=== PATIENT | male | born 1965 | race Caucasian/White ===

== ENCOUNTER 2020-11-29 08:17 | Emergency (ER) | payer OTHER, SELFPAY ==
[2020-11-29 08:21] VITALS: BP 125/86; PULSE 90; RESP 14; TEMP 36.3; O2SAT 94; BMI 25.7
--- NOTE | 2020-11-29 08:37 | XRR_ITS ---
PROCEDURE INFORMATION: Exam: XR Chest Exam date and time: 11/29/2020 8:50 AM Age: 55 years old Clinical indication: Chest pain TECHNIQUE: Imaging protocol: XR of the chest. Views: Frontal portable upright view of the chest. COMPARISON: CR Chest 1 [place] [id number] 09/02/2017 11:02 AM FINDINGS: Tubes, catheters and devices: EKG leads are present overlying the chest. Lungs: The lungs are clear bilaterally. The pulmonary vasculature is normal. Pleural spaces: No pleural effusion. No pneumothorax. Heart/Mediastinum: The heart is normal in size and contour. Mediastinum: Stable. Bones/joints: Mild leftward lower thoracic spinal curvature. XR/XR chest 1V portable [id number] IMPRESSION: No acute cardiopulmonary abnormality identified.
--- NOTE | 2020-11-29 08:37 | ECG_ITS ---
[facility] Test Date: 2020-11-29 Pat Name: Des Kramer Department: Room: Gender: Male Intelligence Consultant: : 1965 Requested By: Kin Barraza Order Number: [id number] Francine MD: Janiya Yi M.D. Measurements Intervals [place] Rate: 84 P: 64 PA: 146 QRS: -67 QRSD: 116 T: 77 QT: 399 QTc: 474 Interpretive Statements SINUS RHYTHM MARKED LEFT AXIS DEVIATION [QRS AXIS < -30] POSSIBLE RIGHT VENTRICULAR CONDUCTION DELAY [RSR (QR) IN V1/V2] POSSIBLE ANTERIOR MYOCARDIAL INFARCTION [30 ms Q WAVE IN V3/V4, OR R < 0.2 mV IN V4], OF INDETERMINATE AGE Compared to ECG 09/02/2017 12:31:10 Left-axis deviation now present Left anterior fascicular block no longer present Myocardial infarct finding still present Electronically Signed On 11-29-2020 10:25:22 CDT by Janiya Yi M.D. [id number]
[2020-11-29 08:38] VITALS: BP 133/77; PULSE 87; RESP 21; O2SAT 96
[2020-11-29] MEDS: aspirin 81 mg Chew Tablet 324 MG PO (08:44)
[2020-11-29 08:59] LABS: Basophils % 0.3 %; Eosinophils % 0.2 %; Hematocrit 42.4 % (42.0-52.0); Hemoglobin 13.9 g/dL (11.7-16.6); Lymphocytes # 1.2 10^3/uL (0.8-4.8); Lymphocytes % 12.2 %; Mean Corpuscular HGB Conc 32.8 g/dL (30.0-36.0); Mean Corpuscular Hemoglobin 28.8 pg (28.0-34.0); Mean Platelet Volume 10.6 fL (7.4-10.4); Monocytes # 0.8 10^3/uL (0.2-0.9); Monocytes % 8.7 %; Neutrophils # 7.46 10^3/uL (1.8-7.7); Neutrophils % 78.3 %; Nucleated Red Blood Cells % 0 %; Platelet Count 188 10^3/cmm (130-400); Red Blood Count 4.82 10^6/uL (4.1-5.3); Red Cell Distribution Width 12.5 % (12.1-15.1); White Blood Count 9.5 10^3/uL (4.0-10.0)
[2020-11-29 09:17] LABS: Troponin(5th) Baseline 13 ng/L (0-15)
[2020-11-29 09:25] LABS: INR 1.09 (0.8-1.2); Partial Thromboplastin Time 31.3 SECONDS (23.9-36.7)
[2020-11-29] MEDS: ondansetron 2 mg/ML SDV 2 mL 4 MG IVP (09:36)
[2020-11-29 09:44] VITALS: BP 113/76; PULSE 71; RESP 19; O2SAT 95
[2020-11-29 10:10] LABS: Alanine Aminotransferase 19 U/L (0-41); Albumin Level 4.4 g/dL (3.5-5.2); Alkaline Phosphatase 132 IU/L (40-130); Aspartate Amino Transferase 19 U/L (0-40); Blood Urea Nitrogen 14 mg/dL (6-20); Calcium 9.1 mg/dL (8.5-10.5); Carbon Dioxide 25 mmol/L (22-29); Chloride 104 mmol/L (98-107); Creatinine Clr Calc Pharmacy 100.8629; Globulin 2.1 g/dL (1.3-4.6); Glucose 108 mg/dL (65-115); NT Pro B Type Natriuretic Pept 155 pg/mL (0-125); Osmolality Calculated 289 mOsm/kg (285-295); Sodium 139 mmol/L (136-145); Total Bilirubin 0.7 mg/dL (0.15-1.2); Total Protein 6.5 g/dL (6.6-8.7)
[2020-11-29 11:00] VITALS: BP 112/70; PULSE 70; RESP 21; O2SAT 97
[2020-11-29 11:02] VITALS: PULSE 68
[2020-11-29 11:13] LABS: Troponin 5 2HR 12.71 ng/L (0-15)
[2020-11-29 11:21] LABS: Troponin 5 2HR Delta -0.29 ABS# (0-10)
[2020-11-29 11:58] VITALS: BP 105/70; PULSE 73; RESP 22; O2SAT 95
--- NOTE | 2020-11-29 19:21 | ED_ITS ---
HPI - Chest Pain General: Chief Complaint: Chest Pain Stated Complaint: CP SINCE MON WITH TEMP Time Seen by Provider: 11/29/20 08:27 History of Present Illness: HPI narrative: 55-year-old male comes in with chest pain. He also has pain in his left arm and hand. This started Monday at about 3:30 PM. He states he just feels lousy. He states that he had similar pain a few years ago when he had his TN. He describes the pain as a tightness in his chest. He has been having dry heaves. He does get heartburn. He states he feels tired. He did not take his temperature but he feels hot. He denies any pain or burning with urination. He has had some upper abdominal pain. He had 4 loose stools since 3 AM today. He denies any flank pain. MD complaint: chest pain (Tightness) Pertinent past history: coronary artery disease and prior TN Onset (ago): day(s) (This started about 3:30 PM and Monday.) Timing of current episode: episodic Prior episodes: Yes Onset: during rest Pain location: left chest Pain radiation: left arm (And left hand) Severity: moderate Quality: tightness and similar to prior TN Relieving factors: nothing Exacerbating factors: nothing Associated symptoms: Reports fever(s) (He states he felt hot), nausea and vomiting; Deny abdominal pain, diaphoresis, dyspnea, palpitations, sense of impending doom or syncope Treatment prior to arrival: none Review of Systems Const: Reports: fever(s) (He states he felt hot); Denies: chills, body aches, change in appetite, change in weight, fatigue, malaise, night sweats, diaphoresis, change in sleep pattern or daytime sleepiness ENMT: Denies: throat pain, ear or mastoid pain, nasal discharge or nasal congestion Card: Reports: chest pain; Denies: palpitations, irregular heart rhythm, edema, swelling of feet/ankles, lightheadedness, syncope, dyspnea on exertion or orthopnea Resp: Denies: dyspnea, productive cough, non-productive cough, wheezing, stridor, pain on inspiration or chest congestion GI: Reports: nausea, vomiting, heartburn and diarrhea; Denies: abdominal pain, hematemesis, coffee ground emesis, dysphagia, constipation, bloating or pain on defecation : Denies: flank pain, difficulty urinating, dysuria or urinary frequency Musc: Denies: neck pain, back pain, extremity pain, extremity swelling, joint pain, joint swelling or muscle weakness Neuro: Denies: headache(s), numbness in extremities, weakness in extremities, difficulty walking, frequent falls, dizziness, vertigo, confusion or Slurred speech present PFSH ED PFSH: Medical History ASHD (arteriosclerotic heart disease) Dyslipidemia Ischemic cardiomyopathy Myocardial infarction Surgical History S/P angioplasty with stent Social History Smoking and tobacco status: former smoker Marital status: Single service: No Current occupational status: employed 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 Physical Exam Const: COMMON NORMALS: no acute distress, average body habitus, patient oriented x3, no limitations, healthy appearing, alert and well nourished EXAM LIMITATIONS: no altered mental status and no behavioral limitations GENERAL APPEARANCE: cooperative, comfortable, well kempt and well developed; not in distress, not lethargic, not ill appearing and not frail appearing O RIENTATION/CONSCIOUSNESS: Yes oriented to person, Yes oriented to place and Yes oriented to time; not lethargic HENMT: COMMON NORMALS: normocephalic, atraumatic, hearing grossly normal bilaterally and moist oral mucous membranes HEAD & SCALP: normocephalic and atraumatic Eye: COMMON NORMALS: Equal, round and reactive pupils present, EOMs intact bilaterally, conjunctivae normal and no scleral icterus GENERAL EYE: appearance normal, both eyes and all related structures and normal light reflex CONJUNCTIVA: Yes conjunctivae normal PUPIL: Yes Equal, round and reactive pupils present DIRECT OPHTHALMOSCOPY: Yes normal light reflex Neck/C-Spine: COMMON NORMALS: full ROM, no lymphadenopathy, supple, no meningeal signs and no JVD GENERAL: Yes trachea midline Resp: COMMON NORMALS: normal respiratory effort, No retractions, No use of accessory muscles and clear to auscultation bilaterally EFFORT & INSPECTION: Yes able to speak in complete sentences, Yes symmetric chest movement, No respiratory distress, No grunting, No stridor, No Actively coughing and No retractions AUSCULTATION: clear to auscultation bilaterally, no crackles, no rales, no rhonchi and no wheezes Cardio: COMMON NORMALS: no JVD, regular rate and regular rhythm RATE: regular rate RHYTHM: regular rhythm GI: COMMON NORMALS: Normal to inspection, nondistended, normoactive bowel sounds present, Soft to palpation, non-tender, No hepatosplenomegaly present and no masses PALPATION: Yes Soft to palpation, No Tenderness to palpation present (GI), No Guarding due to palpation present (GI) and Yes No hepatosplenomegaly present : COMMON NORMALS: Yes no CVA tenderness BLADDER/KIDNEY EXAM: Yes no CVA tenderness Back/Pelvis: COMMON NORMALS: no CVA tenderness Extremity: COMMON NORMALS: normal to inspection, full ROM, capillary refill normal, no joint enlargement, no clubbing, cyanosis or edema, no calf tenderness and no pedal edema Neuro: COMMON NORMALS: patient oriented x3, moves all extremities, no focal motor deficits and gait normal SENSORIUM/ORIENTATION: Yes alert, Yes oriented to person, Yes oriented to place, Yes oriented to time, No Orientation impaired, No lethargic, No somnolent, No obtunded, No stuporous and No fluctuating sensorium MENINGEAL SIGNS: Yes no meningeal signs Psych: COMMON NORMALS: mental status grossly normal, Normal thought process present, cooperative, normal affect, speech normal and activity/motor behavior normal APPEARANCE: Yes grossly normal and Yes well kempt ATTITUDE: Yes calm and Yes engaged ACTIVITY/MOTOR BEHAVIOR: Yes appropriate eye contact SPEECH: Yes normal speech THOUGHT PROCESS: Normal thought process present Course Vital Signs: Vital signs: Vital Signs Temperature 97.3 F L 11/29/20 08:21 Pulse Rate 73 11/29/20 11:58 Respiratory Rate 22 H 11/29/20 11:58 Blood Pressure 105/70 11/29/20 11:58 Pulse Oximetry 95 11/29/20 11:58 MDM - Chest Pain Lab Data: Labs: Lab Results 11/29/20 11/29/20 11/29/20 Range/Units 08:28 08:28 08:28 WBC 9.5 (4.0-10.0) 10^3/ uL RBC 4.82 (4.1-5.3) 10^6/u L Hgb 13.9 (11.7-16.6) g/dL Hct 42.4 (42.0-52.0) % MCV 88.0 (80-94) fL MCH 28.8 (28.0-34.0) pg MCHC 32.8 (30.0-36.0) g/dL RDW 12.5 (12.1-15.1) % Plt Count 188 (130-400) 10^3/c mm MPV 10.6 H (7.4-10.4) fL Neut % (Auto) 78.3 % Lymph % (Auto) 12.2 % [place] % (Auto) 8.7 % Eos % (Auto) 0.2 % Baso % (Auto) 0.3 % Neut # (Auto) 7.46 (1.8-7.7) 10^3/u L Lymph # (Auto) 1.2 (0.8-4.8) 10^3/u L [place] # (Auto) 0.8 (0.2-0.9) 10^3/u L Eos # (Auto) 0.0 (0.0-0.8) 10^3/u L Baso # (Auto) 0.0 (0.0-0.1) 10^3/u L Nucleated RBC % (a uto) 0 % Nucleated RBCs # 0.0 /100WBC PT 14.40 (12.1-14.9) SECO NDS INR 1.09 (0.8-1.2) APTT 31.3 (23.9-36.7) SECO NDS Sodium 139 (136-145) mmol/L Potassium 4.0 (3.5-5.1) mmol/L Chloride 104 (98-107) mmol/L Carbon Dioxide 25 (22-29) mmol/L Anion Gap 14.0 (5-19) BUN 14 (6-20) mg/dL Creatinine 0.9 (0.7-1.2) mg/dL GFR Calculation 87.0 L (90-130) mL/min Glucose 108 (65-115) mg/dL Calculated Osmolal ity 289 (285-295) mOsm/k g Calcium 9.1 (8.5-10.5) mg/dL Total Bilirubin 0.7 (0.15-1.2) mg/dL AST 19 (0-40) U/L ALT 19 (0-41) U/L Alkaline Phosphata se 132 H (40-130) IU/L Troponin T Baselin e (0-15) ng/L Troponin T 120 Min andreafski (0-15) ng/L Delta Troponin T (0-10) ABS# NT-Pro-B Natriuret Pep 155 H (0-125) pg/mL Total Protein 6.5 L (6.6-8.7) g/dL Albumin 4.4 (3.5-5.2) g/dL Globulin 2.1 (1.3-4.6) g/dL 11/29/20 11/29/20 Range/Units 08:28 10:30 WBC (4.0-10.0) 10^3/ uL RBC (4.1-5.3) 10^6/u L Hgb (11.7-16.6) g/dL Hct (42.0-52.0) % MCV (80-94) fL MCH (28.0-34.0) pg MCHC (30.0-36.0) g/dL RDW (12.1-15.1) % Plt Count (130-400) 10^3/c mm MPV (7.4-10.4) fL Neut % (Auto) % Lymph % (Auto) % [place] % (Auto) % Eos % (Auto) % Baso % (Auto) % Neut # (Auto) (1.8-7.7) 10^3/u L Lymph # (Auto) (0.8-4.8) 10^3/u L [place] # (Auto) (0.2-0.9) 10^3/u L Eos # (Auto) (0.0-0.8) 10^3/u L Baso # (Auto) (0.0-0.1) 10^3/u L Nucleated RBC % (a uto) % Nucleated RBCs # /100WBC PT (12.1-14.9) SECO NDS INR (0.8-1.2) APTT (23.9-36.7) SECO NDS Sodium (136-145) mmol/L Potassium (3.5-5.1) mmol/L Chloride (98-107) mmol/L Carbon Dioxide (22-29) mmol/L Anion Gap (5-19) BUN (6-20) mg/dL Creatinine (0.7-1.2) mg/dL GFR Calculation (90-130) mL/min Glucose (65-115) mg/dL Calculated Osmolal ity (285-295) mOsm/k g Calcium (8.5-10.5) mg/dL Total Bilirubin (0.15-1.2) mg/dL AST (0-40) U/L ALT (0-41) U/L Alkaline Phosphata se (40-130) IU/L Troponin T Baselin e 13 (0-15) ng/L Troponin T 120 Min andreafski 12.71 (0-15) ng/L Delta Troponin T -0.29 L (0-10) ABS# NT-Pro-B Natriuret Pep (0-125) pg/mL Total Protein (6.6-8.7) g/dL Albumin (3.5-5.2) g/dL Globulin (1.3-4.6) g/dL Discharge Plan Discharge Patient Disposition: Home Clinical Impression: Blood pressure, low, incidental finding Chest pain Qualifiers: Chest pain type: unspecified Qualified Code(s): R07.9 - Chest pain, unspecified Nausea & vomiting Qualifiers: Vomiting type: unspecified Vomiting Intractability: non-intractable Qualified Code(s): R11.2 - Nausea with vomiting, unspecified Condition: Stable Prescriptions: No Action simvastatin 40 mg tablet 40 mg PO DAILY RF: 0 clopidogrel 75 mg tablet See Rx Instructions .ROUTE .COMPLEX Qty: 90 RF: 3 metoprolol tartrate 25 mg tablet See Rx Instructions .ROUTE .COMPLEX Qty: 90 RF: 3 lisinopril 2.5 mg tablet See Rx Instructions .ROUTE .COMPLEX Qty: 90 RF: 3 aspirin 81 mg tablet,delayed release (DR/EC) See Rx Instructions .ROUTE .COMPLEX Qty: 90 RF: 2 atorvastatin 40 mg tablet 40 mg PO DAILY Qty: 90 RF: 2 Discharge Orders: Discharge ED (Routine); Ordered 11/29/20 Ordered By: Kin Barraza Referrals: Lazaro Schrader, [Primary Care Provider] - Discharge Diet: As Directed Discharge Activity: Resume usual activity Patient Instructions: Opioid Safety Activity Restrictions/Additional Instructions: Take your lisinopril in the morning with the rest of your medications at night. Coding Level of Care Code ED Dinkey Engine Mechanic for Azam Fwd Exam Comprehensive
== END 2020-11-29 11:59 | disposition home or self-care (01) ==
PROVIDERS: Emergency Provider Emergency Medicine; PCP Electrodiagnostic Medicine
DX: R07.9 Chest pain, unspecified (principal); R11.2 Nausea with vomiting, unspecified; R03.1 Nonspecific low blood-pressure reading; Z79.82 Long term (current) use of aspirin; E78.5 Hyperlipidemia, unspecified; I25.2 Old myocardial infarction; Z87.891 Personal history of nicotine dependence
CPT/HCPCS: 36415; 71045; 80053; 83880; 84484; 85025; 85610; 85730; 93005; 96374; 99284; J2405

== ENCOUNTER 2021-05-14 07:49 | Outpatient (CLI) | payer OTHER, SELFPAY ==
[2021-05-14 07:53] VITALS: BP 141/72; PULSE 74; RESP 18; TEMP 37; O2SAT 98; BMI 25.7
[2021-05-14 08:27] VITALS: BP 130/79; PULSE 66; RESP 16; O2SAT 98
[2021-05-14 09:25] VITALS: BP 129/79; PULSE 65; RESP 17; TEMP 36.8; O2SAT 98
--- NOTE | 2021-05-19 14:44 | PC.SOCIAL ---
antibody infusion follow up call patient reports symptoms are better, he had a bad sore throat which is now better with a slight cough. continues to have fatigue but is improving.
== END 2021-05-14 07:50 | disposition home or self-care (01) ==
LOC: OPS 07:51
PROVIDERS: PCP Electrodiagnostic Medicine; Visit Provider Nurse Practitioner
DX: U07.1 COVID-19 (principal)
CPT/HCPCS: 96365

== ENCOUNTER 2021-12-31 07:03 | Outpatient (CLI) | payer OTHER, SELFPAY ==
--- NOTE | 2021-12-31 07:17 | ECG_ITS ---
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 Interpretive Statements NAME OF STUDY: EXERCISE SESTAMIBI STRESS TEST INDICATION: Chest Pain Baseline blood pressure of 135/86 mm Hg, heart rate 59 beats per minute and oxygen saturation of 98%. EKG showed normal sinus rhythm, normal axis. Possible old anterior infarct. The patient exercised for 10 minutes 31 seconds on a standard Rad protocol. Patient attained a maximum heart rate of 154 beats per minute(95% of the maximum predicted heart rate) with a blood pressure at the peak exercise of 141/65 mm Hg and oxygen saturation of 96%. The EKG at the peak exercise revealed sinus tachycardia with no significant ST-T wave changes. Patient did not have any chest pain or any significant arrhythmis with the exercise. The study was terminated due to maximal effort. During the recovery phase, there were no new changes. Blood pressure at the end of the recovery phase was 168/72 mm Hg with a heart rate of 96 beats per minute and oxygen saturation 99%. CONCLUSION: 1. Normal EKG response to treadmill exercise. 2. No exercise-induced chest pain or cardiac arrhythmia. 3. Excellent exercise tolerance, attained a maximum of 10.3 METs. Maximum VO2 47.3 mL/kg/min. 4. Baseline hypertension with normal response to exercise. 5. Perfusion scan will be documented separately. Electronically Signed On 01-04-2022 15:26:02 CDT by Janiya Yi M.D. [id number]
--- NOTE | 2021-12-31 07:18 | NMCV_ITS ---
NM virgilio perf SPECT r/s* [id number] Des Kramer Age: 56 Gender: M : 1965 Exam Date: 12/31/2021 07:18 Ordering Phys: Kenneth Valle MD ([email or web address]) Technologist: JASIEL Braun Exam Location: [facility] Indications: CHEST PAIN STRESS TEST Please see separate stress test report in [facility] for full findings IMAGE PROTOCOL Rest/Stress 1 Exercise Day Radiopharmaceutical Dose (mCi) Administration Site Administered by Rest: Tc-99m 10.8 IV JASIEL Douglas Sestamibi Stress:Tc-99m 32.6 IV JASIEL Braun Sestamiarnaldo Rest: 31-Dec-2021 60 Discovery 630 Stress: 31-Dec-2021 15 Discovery 630 Radiopharmaceutical was injected at 89 % maximum heart rate. Images obtained in supine and prone position. SPECT RESULTS Technical Quality: Excellent Raw Data Analysis: Normal Image Corrections: No attenuation or motion correction applied Summed Stress Score: 13 Summed Rest Score: 17 Summed Difference Score: 0 PERFUSION FINDINGS Medium size perfusion abnormality of moderate severity of mid to apical anterior, mid to apical anteroseptal, mid inferoseptal, apical inferior and apical lateral earl on rest images with somewhat improved tracer uptake on stress images. FUNCTIONAL RESULTS (calculated via Gated SPECT) Stress Image LV EF (%): 55 Stress EDV (mL):131 TID: 0.84 Stress ESV (mL):59 FUNCTIONAL FINDINGS: The left ventricle is normal in size. Transient Ischemia Dilatation of 0.84. The left ventricular ejection fraction is normal with a value of 55%. There is possibly mild hypokinesis of apical inferior wall. IMPRESSIONS 1. Medium size predominantly fixed perfusion abnormality of moderate severity of mid to apical anterior, mid to apical anteroseptal, mid inferoseptal, apical inferior and apical lateral earl. 2. This likely represents old myocardial infarction in left anterior descending artery territory with no venessa-infarct ischemia. 3. The left ventricular ejection fraction is normal with a value of 55%. 4. There is possibly mild hypokinesis of apical inferior wall. 5. Excellent exercise tolerance with no ischemic EKG changes with exercise. Refer to separate report for details. 6. No coronary ischemia based on the study. Janiya Kd MD (Electronically Signed) Final Date: 04 Jan 2022 15:39 S
[2021-12-31 07:19] VITALS: BMI 25.7
[2021-12-31 09:12] VITALS: BP 168/72; PULSE 95
== END 2021-12-31 07:04 | disposition home or self-care (01) ==
PROVIDERS: PCP Electrodiagnostic Medicine; Visit Provider Internal Medicine Cardiovascular Disease
DX: R07.9 Chest pain, unspecified (principal)
CPT/HCPCS: 78452; 93017; A9500

== ENCOUNTER 2025-04-24 09:50 | Emergency (ER) | payer OTHER, SELFPAY ==
[2025-04-24] VITALS (9 sets, daily range): BP systolic 121–163; BP diastolic 82–111; PULSE 55–77; RESP 11–23; TEMP 36.6; O2SAT 94–100; BMI 26.0
--- NOTE | 2025-04-24 10:01 | XRR_ITS ---
PROCEDURE INFORMATION: Exam: XR Chest Exam date and time: 04/24/2025 10:44 AM Age: 59 years old Clinical indication: Dyspnea; Additional info: Dyspnea/cough TECHNIQUE: Imaging protocol: Radiologic exam of the chest. Views: 1 view. COMPARISON: CR (CHEST, ) 11/29/2020 8:47 AM FINDINGS: Lungs: Unremarkable. No consolidation. Pleural spaces: Unremarkable. No pleural effusion. No pneumothorax. Heart/Mediastinum: Unremarkable. No cardiomegaly. Bones/joints: Unremarkable. XR/XR chest 1V portable [id number] IMPRESSION: No acute findings.
--- NOTE | 2025-04-24 10:06 | ECG_ITS ---
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
--- NOTE | 2025-04-24 10:24 | ED_ITS ---
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 Past after approximately a minute he did get mildly diaphoretic and nauseous with that he never had any chest pain did have some left arm discomfort. All of the symptoms have resolved prior to coming in he not had any similar symptoms previous. Has known history of coronary artery disease and previously had a stent several years ago has had stress test since that time that were negative. Associated symptoms: Denies chest pain or chills Related Data Home Medications ?Medication ?Instructions ?Recorded ?Confirmed fluticasone propionate 50 1 spray intranasal BID PRN 0 02/08/23 04/24/25 mcg/actuation nasal allergies spray,suspension (Flonase Allergy Relief) aspirin 81 mg tablet,delayed 81 mg PO QPM 04/24/2507/08 release atorvastatin 40 mg tablet 40 mg PO QPM 04/24/25 clopidogrel 75 mg tablet 75 mg PO QPM 04/24/25 lisinopril 2.5 mg tablet 2.5 mg PO QPM 04/24/2504/24 loratadine 10 mg tablet (Claritin) 10 mg PO DAILY PRN allergies 04/24/25 04/24/25 Allergies Allergy/AdvReac Type Severity Reaction Status Date / Time No Known Allergies Allergy Verified 08/05/24 12:59 Review of Systems 2 Const: Denies: fever(s) or chills Card: Denies: chest pain Resp: Denies: dyspnea GI: Denies: abdominal pain : Denies: dysuria, urinary frequency or urinary urgency Musc: Denies: neck pain or back pain Skin/Breast: Denies: rash PFSH ED 2 PFSH: Medical History Ischemic cardiomyopathy Myocardial infarction ASHD (arteriosclerotic heart disease) Dyslipidemia Surgical History S/P angioplasty with stent Social History (Reviewed 04/25/25 @ 06:02 by THERESE Elder Smoking and tobacco/nicotine status: former use of tobacco/nicotine Marital status: Single service: No Current occupational status: employed 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 Physical Exam 2 Const: COMMON NORMALS: no acute distress GENERAL APPEARANCE: cooperative and comfortable ORIENTATION/CONSCIOUSNESS: Yes awake, Yes oriented to person, Yes oriented to place and Yes oriented to time HENMT: COMMON NORMALS: normocephalic, atraumatic and hearing grossly normal bilaterally HEAD & SCALP: normocephalic and atraumatic Resp: COMMON NORMALS: normal respiratory effort, No retractions, No use of accessory muscles and clear to auscultation bilaterally AUSCULTATION: clear to auscultation bilaterally Cardio: COMMON NORMALS: regular rate, regular rhythm and No murmurs present (Cardio) RATE: regular rate RHYTHM: regular rhythm GI: COMMON NORMALS: Soft to palpation and No hepatosplenomegaly present A USCULTATION: Yes normoactive bowel sounds PALPATION: Yes Soft to palpation, No Tenderness to palpation present (GI), No Guarding due to palpation present (GI) and Yes No hepatosplenomegaly present Extremity: COMMON NORMALS: normal to inspection, capillary refill normal, no clubbing, cyanosis or edema, no calf tenderness and no pedal edema Neuro: SENSORIUM/ORIENTATION: Yes oriented to person, Yes oriented to place and Yes oriented to time Skin: COMMON NORMALS: no rashes or lesions noted GENERAL SKIN EXAM: no rashes or lesions noted Course 2 Vital Signs: Vital signs: Vital Signs Temperature 97.8 F 04/24/25 09:54 Pulse Rate 63 04/24/25 14:02 Respiratory Rate 22 H 04/24/25 13:00 Blood Pressure 153/105 04/24/25 14:02 Pulse Oximetry 98 04/24/25 14:02 Oxygen Delivery Me thod Room Air 04/24/25 09:54 MDM - Dizziness Medical Decision Making Patient has had no further symptoms symptoms he did have primarily dizziness began after he had been working when bending over and then standing up. Since then he has had no further symptoms cardiac enzymes have been negative EKG was normal. 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 Laboratory Results WBC 5.30 10^3/uL (3.29-11.43) 04/24/25 10:13 RBC 4.73 10^6/uL (3.85-5.65) 04/24/25 10:13 Hgb 13.50 g/dL (11.27-16.99) 04/24/25 10:13 Hct 40.2 % (37-53) 04/24/25 10:13 MCV 85.0 fl (82-101) 04/24/25 10:13 MCH 28.5 pg (27-33) 04/24/25 10:13 MCHC 33.6 g/dL (30-55) 04/24/25 10:13 RDW 12.6 % (12.1-15.1) 04/24/25 10:13 Plt Count 191 10^3/cmm (157-399) 04/24/25 10:13 MPV 10.5 fL (7.4-10.4) H 04/24/25 10:13 Neut % (Auto) 55.1 % 04/24/25 10:13 Lymph % (Auto) 30.9 % 04/24/25 10:13 [place] % (Auto) 8.7 % 04/24/25 10:13 Eos % (Auto) 3.8 % 04/24/25 10:13 Baso % (Auto) 1.1 % 04/24/25 10:13 Neut # (Auto) 2.92 10^3/uL (1.8-7.7) 04/24/25 10:13 Lymph # (Auto) 1.6 10^3/uL (0.8-4.8) 04/24/25 10:13 [place] # (Auto) 0.5 10^3/uL (0.2-0.9) 04/24/25 10:13 Eos # (Auto) 0.2 10^3/uL (0.0-0.8) 04/24/25 10:13 Baso # (Auto) 0.1 10^3/uL (0.0-0.1) 04/24/25 10:13 Nucleated RBC % (auto) 0 % 04/24/25 10:13 Nucleated RBCs # 0.0 /100WBC 04/24/25 10:13 Sodium 139 mmol/L (136-145) 04/24/25 10:13 Potassium 3.9 mmol/L (3.5-5.1) 04/24/25 10:13 Chloride 104 mmol/L (98-107) 04/24/25 10:13 Carbon Dioxide 24 mmol/L (22-29) 04/24/25 10:13 Anion Gap 14.9 (5-19) 04/24/25 10:13 BUN 14 mg/dL (8-23) 04/24/25 10:13 Creatinine 1.0 mg/dL (0.7-1.2) 04/24/25 10:13 GFR Calculation 76.0 mL/min (90-130) L 04/24/25 10:13 Glucose 109 mg/dL (65-115) 04/24/25 10:13 Calculated Osmolality 289 mOsm/kg (285-295) 04/24/25 10:13 Calcium 9.2 mg/dL (8.5-10.5) 04/24/25 10:13 Total Bilirubin 0.7 mg/dL (0.15-1.2) 04/24/25 10:13 AST 19 U/L (0-40) 04/24/25 10:13 ALT 16 U/L (0-41) 04/24/25 10:13 Alkaline Phosphatase 105 U/L (40-130) 04/24/25 10:13 Troponin T Baseline 13 ng/L (0-15) 04/24/25 10:13 Troponin T 120 Minute 14.54 ng/L (0-15) 04/24/25 12:29 Delta Troponin T 1.54 ABS# (0-10) 04/24/25 12:29 Total Protein 7.0 g/dL (6.6-8.7) 04/24/25 10:13 Albumin 4.5 g/dL (3.5-5.2) 04/24/25 10:13 Globulin 2.5 g/dL (1.3-4.6) 04/24/25 10:13 Urine Color Yellow (Yellow) 04/24/25 11:00 Urine Appearance Clear (CLEAR) 04/24/25 11:00 Urine pH 7.0 (5-7) 04/24/25 11:00 Ur Specific [place] 1.015 (1.005-1.030) 04/24/25 11:00 Urine Protein Negative (Negative) 04/24/25 11:00 Urine Glucose (UA) Negative (Normal) 04/24/25 11:00 Urine Ketones Negative (Negative) 04/24/25 11:00 Urine Blood Negative (Negative) 04/24/25 11:00 Urine Nitrate Negative (Negative) 04/24/25 11:00 Urine Bilirubin Negative (Negative) 04/24/25 11:00 Urine Urobilinogen 1.0 mg/dL (Negative) 04/24/25 11:00 Ur Leukocyte Esterase Negative (Negative) 04/24/25 11:00 Urine RBC 0-2 /hpf (0-2) 04/24/25 11:00 Urine WBC 0-5 /hpf (0-5) 04/24/25 11:00 Ur Squamous Epith Cells 0-5 /hpf (0-5) 04/24/25 11:00 Amorphous Sediment Not Reportable 04/24/25 11:00 Urine Bacteria None seen /hpf (NONE) 04/24/25 11:00 Hyaline Casts 0.81 /lpf 04/24/25 11:00 All radiology interpretation(s) finalized by discharge EKG Data EKG 1: Interpretation: 911 2025-05-19 sinus bradycardia rate of 59 MD [address] elevation no ST depression. Compared to EKG 11/29/2020 Discharge Plan Discharge Patient Disposition: Home Clinical Impression: Orthostatic hypotension, Ischemic cardiomyopathy, ASHD (arteriosclerotic heart disease) Condition: Stable Prescriptions: No Action fluticasone propionate [Flonase Allergy Relief] 50 mcg/actuation spray,suspension 1 spray intranasal BID PRN (Reason: allergies) Rx Instructions: administer into each nostril loratadine [Claritin] 10 mg Tablet 10 mg PO DAILY PRN (Reason: allergies) atorvastatin 40 mg tablet 40 mg PO QPM clopidogrel 75 mg tablet 75 mg PO QPM aspirin 81 mg tablet,delayed release (DR/EC) 81 mg PO QPM lisinopril 2.5 mg tablet 2.5 mg PO QPM Discharge Orders: Discharge ED (Routine); Ordered 04/24/25 Ordered By: Darrin Booth Discharge Diet: Usual diet Discharge Activity: Resume usual activity Patient Instructions: Opioid Safety, Pain Management, Patient Portal & Amira Instructions Activity Restrictions/Additional Instructions: Thank you for choosing [facility] for your healthcare needs today. It is very important that you follow up as instructed or that you return to the Emergency Department should you have concerns or if your condition changes or worsens in any way. Emergency department visits are focused on emergent conditions, in some cases you may require further evaluation on an outpatient basis. You are seen in the emergency room with complaint of lightheadedness and dizziness after you stood up while working. Cardiac enzymes laboratory tests were unremarkable there is no sign of acute coronary syndrome at this time. Suspect due to some of your medications and your history of coronary disease your blood pressure dipped which made you lightheaded and dizzy. Will discharge home continue your current medications and follow-up with your primary care doctor within the next week return if you have further symptoms. (Please note that included in your discharge packet is information concerning opioid safety and pain management. This information is given to all patients were discharged from the ER regardless of their discharge diagnosis or the medicines they usually take or are prescribed.) Print Language: Albanian Coding Level of Care Code ED Chemist Instrumentation for Azam Ash
[2025-04-24 10:29] LABS: Hematocrit 40.2 % (37-53); Hemoglobin 13.50 g/dL (11.27-16.99); Mean Corpuscular HGB Conc 33.6 g/dL (30-55); Mean Corpuscular Hemoglobin 28.5 pg (27-33); Mean Corpuscular Volume 85.0 fl (82-101); Nucleated Red Blood Cells % 0 %; Platelet Count 191 10^3/cmm (157-399); Red Blood Count 4.73 10^6/uL (3.85-5.65); White Blood Count 5.30 10^3/uL (3.29-11.43)
[2025-04-24 10:44] LABS: Troponin(5th) Baseline 13 ng/L (0-15)
[2025-04-24 10:45] LABS: Alanine Aminotransferase 16 U/L (0-41); Albumin Level 4.5 g/dL (3.5-5.2); Alkaline Phosphatase 105 U/L (40-130); Anion Gap 14.9 (5-19); Aspartate Amino Transferase 19 U/L (0-40); Blood Urea Nitrogen 14 mg/dL (8-23); Calcium 9.2 mg/dL (8.5-10.5); Carbon Dioxide 24 mmol/L (22-29); Chloride 104 mmol/L (98-107); Creatinine Clr Calc Pharmacy 86.7999; Globulin 2.5 g/dL (1.3-4.6); Glucose 109 mg/dL (65-115); Osmolality Calculated 289 mOsm/kg (285-295); Potassium 3.9 mmol/L (3.5-5.1); Sodium 139 mmol/L (136-145); Total Protein 7.0 g/dL (6.6-8.7)
[2025-04-24 11:09] LABS: Glucose Urine UA Negative (Normal); Nitrate Urine Negative (Negative); Specific Gravity, Urine 1.015 (1.005-1.030)
[2025-04-24 11:14] LABS: Add Urine Microscopic? YES
[2025-04-24 13:25] LABS: Troponin 5 2HR 14.54 ng/L (0-15); Troponin 5 2HR Delta 1.54 ABS# (0-10)
--- NOTE | 2025-04-25 13:25 | DCPLANNER ---
faxed outpatient simi order to scheduling and messaged heart care for er f/u
== END 2025-04-24 14:02 | disposition home or self-care (01) ==
PROVIDERS: Emergency Provider Family Medicine
DX: I95.1 Orthostatic hypotension (principal); I25.5 Ischemic cardiomyopathy; I25.10 Atherosclerotic heart disease of native coronary artery without angina pectoris; Z79.02 Long term (current) use of antithrombotics/antiplatelets; Z79.82 Long term (current) use of aspirin; Z87.891 Personal history of nicotine dependence; E78.5 Hyperlipidemia, unspecified
CPT/HCPCS: 36415; 71045; 80053; 81001; 84484; 85025; 93005; 99285

== ENCOUNTER 2025-06-16 08:39 | Outpatient (CLI) | payer OTHER, SELFPAY ==
[2025-06-16 08:50] VITALS: BMI 26.2
--- NOTE | 2025-06-16 08:54 | ECG_ITS ---
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 Interpretive Statements Lung unchanged pre/post procedure; Intraprocedure shortess of breath; Symptoms resoled by discharge PROCEDURE: The baseline electrocardiogram showed [normal sinus rhythm with poor R wave progression. Possible old septal KS. Incomplete right bundle branch block pattern. At the baseline, the patient's blood pressure was 144/70 mm Hg with a heart rate of 57. The patient exercised for 9 minutes and 30 seconds on a standard Rad protocol. Patient attained a maximum heart rate of 150 beats per minute(94% of the maximum predicted heart rate) with a blood pressure at the peak exercise of 169/73 mm Hg. The EKG at the peak exercise revealed no significant changes. Patient did not have any chest pain or any significant arrhythmis with the exercise Sestamibi was injected 1 minute prior to the peak exercise During the recovery phase, there were no new changes. Blood pressure at the end of the recovery phase was 164/86 mm Hg with a heart rate of 93 per minute. CONCLUSION: 1. No significant EKG changes with the [treadmill exercise 2. No exercise-induced chest pain or cardiac arrhythmia 3. Good exercise tolerance, attained a maximum of 13.5 METs 4. Sestamibi/Sestamibi perfusion results pending; see separate report. Electronically Signed On 06-20-2025 20:56:16 BRUSHER WARP by Lamar Puente M.D. [email or web address]
--- NOTE | 2025-06-16 08:55 | NMCV_ITS ---
NM virgilio perf SPECT r/s* [id number] Des Kramer Age: 60 Gender: M : 1965 Exam Date: 06/16/2025 09:40 Ordering Phys: Billy Lunsford M.D ([email or web address]) Technologist: JASIEL Jiang Exam Location: [facility] Indications: cp STRESS TEST Please see separate stress test report in [facility] for full findings IMAGE PROTOCOL Rest/Stress 1 Exercise Day Radiopharmaceutical Dose (mCi) Administration Site Administered by Rest: Tc-99m 10.5 IV JASIEL Jiang Sestamibi Stress:Tc-99m 32.3 IV JASIEL Braun Sestamibi Rest: 16-Jun-2025 60 Discovery 630 Stress: 16-Jun-2025 15 Discovery 630 Radiopharmaceutical was injected at 87 % maximum heart rate. Images obtained in supine and prone position. SPECT RESULTS Technical Quality: Good Raw Data Analysis: Normal Image Corrections: No attenuation or motion correction applied Summed Stress Score: 15 Summed Rest Score: 16 Summed Difference Score: 0 PERFUSION FINDINGS Moderate area of moderately decreased tracer uptake involving the mid anteroseptal, mid anterior, and all the apical segments including the LV apex. No significant reversibility was noted in these regions. FUNCTIONAL RESULTS (calculated via Gated SPECT) Stress Image LV EF (%): 52 Stress EDV (mL):111 TID: 0.8 Stress ESV (mL):53 FUNCTIONAL FINDINGS: Segmental wall motion analysis revealing no gross wall motion abnormalities IMPRESSIONS 1. Myocardial perfusion imaging revealing moderate area of persistent decreased tracer uptake involving the anteroseptal, anterior and all apical segments suggesting myocardial scarring versus attenuation artifact 2. Normal LV ejection fraction of 52%. 3. LV wall motion analysis revealing no gross wall motion abnormalities. 4. Minimally dilated LV cavity with an end-systolic volume of 53 mL Compared to the study from 12/31/2021, there may not be a significant change Dr Lamar Puente MD FAC (Electronically Signed) Final Date: 16 June 2025 11:57 S
[2025-06-16 10:33] VITALS: BP 133/68; PULSE 84
== END 2025-06-16 08:40 | disposition home or self-care (01) ==
LOC: CDL 08:42
PROVIDERS: PCP Electrodiagnostic Medicine; Visit Provider Internal Medicine
DX: R07.9 Chest pain, unspecified (principal); R93.1 Abnormal findings on diagnostic imaging of heart and coronary circulation
CPT/HCPCS: 36415; 78452; 93017; 96374; A9500